=== PATIENT | male | born 1965 | race Caucasian/White ===

== ENCOUNTER → 2025-01-06 | Day surgery (SDC) | payer OTHER ==
[~2025-01-06] VITALS: Ht 162.6 cm; Wt 80.9 kg
[~2025-01-06] MED LIST: CYCLOPENTOLATE HCL 1% 2 ML OPHTHALMIC SOLUTION ONE; FentaNYL CITRATE PF 100 MCG/2 ML VIAL IM ONE; FentaNYL CITRATE PF 100 MCG/2 ML VIAL ONE; KETOROLAC TROMETHAMINE 0.5% 5 ML OPHTHALMIC SOLUTION ONE; LEVO88TA4 PO; MIDAZOLAM HCL 2 MG/2 ML VIAL IVP ONE; MIDAZOLAM HCL 2 MG/2 ML VIAL ONE; MOXIFLOXACIN HCL 0.5% 3 ML OPHTHALMIC SOLUTION ONE; PHENYLEPHRINE HCL 2.5% 2 ML OPHTHALMIC SOLUTION ONE; RINGERS SOLUTION,LACTATED 500 ML IV ONE; TROPICAMIDE 1% 3 ML OPHTHALMIC SOLUTION ONE
[2025-01-06] MEDS: MOXIFLOXACIN HCL 0.5% 3 ML OPHTHALMIC SOLUTION OS SCH (06:06)
[2025-01-06] MEDS: PHENYLEPHRINE HCL 2.5% 2 ML OPHTHALMIC SOLUTION OS SCH (06:06)
[2025-01-06] MEDS: CYCLOPENTOLATE HCL 1% 2 ML OPHTHALMIC SOLUTION OS SCH (06:06)
[2025-01-06] MEDS: KETOROLAC TROMETHAMINE 0.5% 5 ML OPHTHALMIC SOLUTION OS SCH (06:06)
[2025-01-06] MEDS: TROPICAMIDE 1% 3 ML OPHTHALMIC SOLUTION OS SCH (06:06)
[2025-01-06] MEDS: RINGERS SOLUTION,LACTATED 500 ML IV ONE (06:07)
[2025-01-06] MEDS: PROPARACAINE HCL 0.5% 15 ML OPHTHALMIC SOLUTION OS ONE (06:59)
[2025-01-06] MEDS: PROPARACAINE HCL 0.5% 15 ML OPHTHALMIC SOLUTION ONE (07:15)
[2025-01-06] MEDS: EPINEPHrine 1:1,000 [1 MG/ML] VIAL ONE (07:20)
[2025-01-06] MEDS: POVIDONE-IODINE 5% 30 ML OPHTHALMIC SOLUTION ONE (07:20)
[2025-01-06] MEDS: BALANCED SALT 15 ML OPHTHALMIC IRRIG.SOLN ONE (07:20)
[2025-01-06] MEDS: LIDOCAINE/PF 1% 2 ML VIAL ONE (07:20)
[2025-01-06] MEDS: PrednisoLONE ACETATE 1% 5 ML OPHTHALMIC SUSPENSION ONE (07:45)
[2025-01-06] MEDS: NEOMYCIN/POLYMYXIN B/DEXAMETH 3.5 GM OPHTHALMIC OINTMENT ONE (07:45)
== END | disposition home or self-care (01) ==
LOC: SDS 05:36
PROVIDERS: ATTEND Ophthalmology
DX: H25.12 Age-related nuclear cataract, left eye (principal); I10 Essential (primary) hypertension; Z98.890 Other specified postprocedural states
CPT/HCPCS: 66984; 93005; J0169; J3010; J3490; J2250; J7120; V2788